=== PATIENT | male | born 1985 | race Asian ===

== ENCOUNTER → 2019-06-15 | Outpatient (CLI) | payer OTHER ==
[2019-06-15 09:33] LABS: BASOPHIL % 0.3 % (0-2); PLATELET COUNT 314 x10^3mcL (130-400); RED CELL DISTRIBUTION WIDTH 12.9 % (11.5-14.5)
[2019-06-15 09:38] LABS: ALBUMIN 4.2 g/dL (3.4-5.0); ALKALINE PHOSPHATASE 68 U/L (46-116); ALT/SGPT 119 U/L (16-63); AST/SGOT 33 U/L (15-37); BILIRUBIN TOTAL 0.5 mg/dL (0.20-1.00); CALCIUM 9.2 mg/dL (8.5-10.1); CHLORIDE SERUM 105 mmol/L (98-107); GFR1 > 60 mL/min; GLUCOSE SERUM 103 mg/dL (74-106); SODIUM SERUM 143 mmol/L (136-145); TOTAL PROTEIN, SERUM 8.1 g/dL (6.4-8.2); URIC ACID 7.3 mg/dL (3.5-7.2)
[2019-06-15 09:39] LABS: CHOLESTEROL 238 mg/dL (<200); HDL CHOLESTEROL 34 mg/dL (40-60); TRIGLYCERIDES 275 mg/dL (<150)
== END | disposition home or self-care (01) ==
LOC: LB 08:38
DX: Z00.00 Encounter for general adult medical examination without abnormal findings (principal)